=== PATIENT | female | born 1970 | race Caucasian/White ===

== ENCOUNTER 2016-05-24 22:00 | Emergency (ER) | payer OTHER ==
--- NOTE | ~2016-05-24 | CR219 ---
[facility] A Service of [facility] & [facility] RADIOLOGY TEXT RESULTS PATIENT: CRISTIANE EVANS LOCATION: SED : 68 UNIT #: [id number] AGE: [address]: LORRAINE LAMB PA-C SEX: F ORDER DR: [id number] [place] [id number] E MR#: [id number] Acc #: [id number] NAME: CRISTIANE EVANS : 1970 SEX: F STUDY DATE/TIME: 05/24/2016 22:33 UNIT: SED ROOM: STUDY DESCRIPTION: CR Sacrum and Coccyx Min 2 Vie Attending Physician: Lorraine Lamb Pa-C Ordering Physician: Lorraine Lamb Pa-C Primary Care Physician: Ivett Beebe M.D. MEDICAL IMAGING REPORT This report is preliminary unless electronic signature is present. EXAM Sacrum and coccyx 05/24/2022 to July 07, 1932 INDICATIONS Tailbone pain after falling down steps 2 hours ago. FINDINGS 3 views of the sacrum and coccyx are compared with the CT pelvis from 10/02/2014. There is a new cortical step off in the proximal coccyx suggesting a small cortical fracture that is nondisplaced. No other fractures are seen. There is no sacroiliac joint diastases. IMPRESSION Nondisplaced anterior cortical fracture of the proximal coccyx. Dictated by... David Oliver Jr., M.D. THIS IS AN ELECTRONICALLY VERIFIED REPORT David Oliver Jr., M.D. at 05/25/2016 2:40 AM HEIDY/pamela TD: 05/25/2016 01:56 JOB #: [id number] MEDICAL IMAGING REPORT Page 1 of 1
[~2016-05-24 22:00] MED LIST: ACETAMINOPHEN PO; ALBUTEROL17 GM INH; AMOXICILLIN500 M1 PO; ATIVAN; ATIVAN PO; BACTRIM 400-801 TA1 PO; BACTRIM DS TABL1 TA1 PO; BACTROBAN15 GM TOP; BENZONATATE PO; CLARITIN10 M2 PO; CLEOCIN PO; CLINDAMYCIN HC300 MG PO; COUMADIN PO; FLAGYL PO; FLEXERIL10 MG PO; HYDROCODON-ACE1 EAC9 PO; KEFLEX500 M1 PO; LEVAQUIN PO; LORAZEPAM0.5 MG PO; LORAZEPAM1 MG PO; LORTAB 5/500 TA1 TA1 PO; LORTAB 5/500 TA1 TA2 PO; METFORMIN HCL500 M1 PO; MOTRIN600 MG PO; NAPROSYN375 MG PO; NEXIUM PO; OMEPRAZOLE40 MG PO; PHENERGAN PO; PHENERGAN W CODEINE PO; PHENERGAN25 M1 PO; PREDNISONE PO; PRILOSEC; PRILOSEC40 MG PO; PROMETHAZINE W118 M1 PO; PROTONIX; PYRIDIUM PO; TESSALON PERLE100 M1 PO; TYLENOL #3 PO; ULTRAM PO; VICODIN 5/1 TAB 5/50 PO; VICODIN 5/500 T1 TAB PO; VIGAMOX3 M2; VOLTAREN75 MG PO; ZITHROMAX PO; ZOFRAN PO; [UNRECOGNIZED DRUG - OTHER] PO
== END 2016-05-25 00:11 | disposition home or self-care (01) ==
LOC: SED 22:00
DX: S32.2XXA Fracture of coccyx, initial encounter for closed fracture (principal); J45.909 Unspecified asthma, uncomplicated; Z90.710 Acquired absence of both cervix and uterus; Z90.49 Acquired absence of other specified parts of digestive tract; W01.0XXA Fall on same level from slipping, tripping and stumbling without subsequent striking against object, initial encounter; Y92.9 Unspecified place or not applicable
CPT/HCPCS: 72220; 99283

== ENCOUNTER 2016-06-05 22:00 | Emergency (ER) | payer OTHER | END 2016-06-06 00:06 | disposition home or self-care (01) | LOC: SED 22:00 | DX: L03.011 Cellulitis of right finger (principal); R03.0 Elevated blood-pressure reading, without diagnosis of hypertension; E11.9 Type 2 diabetes mellitus without complications; J45.909 Unspecified asthma, uncomplicated; Z23 Encounter for immunization; Z79.899 Other long term (current) drug therapy; Z79.84 Long term (current) use of oral hypoglycemic drugs; Z88.8 Allergy status to other drugs, medicaments and biological substances; Z88.6 Allergy status to analgesic agent; Z88.5 Allergy status to narcotic agent | CPT/HCPCS: 90471; 90715; 99283 ==

== ENCOUNTER 2016-10-13 22:04 | Emergency (ER) | payer OTHER | END 2016-10-13 23:30 | disposition home or self-care (01) | LOC: SED 22:04 | DX: J02.9 Acute pharyngitis, unspecified (principal); E11.65 Type 2 diabetes mellitus with hyperglycemia; Z88.5 Allergy status to narcotic agent; Z88.8 Allergy status to other drugs, medicaments and biological substances; Z79.899 Other long term (current) drug therapy; Z79.84 Long term (current) use of oral hypoglycemic drugs | CPT/HCPCS: 99283 ==